=== PATIENT | female | born 1950 | race Caucasian/White ===

== ENCOUNTER 2024-02-03 13:03 | Emergency (ER) | payer OTHER ==
--- NOTE | 2024-02-03 13:38 | RAD REPORT ---
EXAMINATION: XR RIGHT SHOUDLER CLINICAL INDICATION: Female, 74 years old. Pain;Deformity RIGHT TECHNIQUE: Multiple views of the right shoulder were obtained. COMPARISON: No prior exam. FINDINGS: Fracture of the distal right clavicle with mild displacement. Fracture of the proximal righ t clavicle also present with mild angulation. There is likely a fracture of the proximal right humerus as well, not well assessed however due to arm positioning.
[2024-02-03 14:04] LABS: Absolute Basophils 0.2 K/uL (0-0.5); Absolute Lymphocytes (CBC) 0.8 K/uL (0.7-4.9); Absolute Monocytes 0.3 K/uL (0.1-1.3); Absolute Neutrophil 6.9 K/uL (1.8-8.0); Eosinophils % 0.6 % (0-4.4); Hematocrit 39.4 % (36.0-45.0); Hemoglobin 13.4 g/dL (12.0-15.0); Lymphocytes % 10.2 % (15.3-44.8); MCHC 34.1 g/dL (32.0-36.0); MCV 96.6 fL (80-100); MPV 7.9 fL (7.6-11.3); Monocytes % 3.7 % (3.3-12.3); Neutrophils % 83.5 % (41.7-73.7); Nucleated Red Blood Cells % 0.1 % (0-0); Platelets 269 thou/uL (152-406); RBC Red Blood Cell Count 4.08 M/uL (3.86-4.86); Red Cell Distribution Width 13.1 % (12.1-15.2)
[2024-02-03 14:16] LABS: Anion Gap 9.5 mEq/L (5.0-15.0); Potassium 3.5 mEq/L (3.5-5.1)
--- NOTE | 2024-02-03 14:44 | RAD REPORT ---
EXAM: CT brain without contrast HISTORY: fall down stairs COMPARISON: None TECHNIQUE: Multiple contiguous axial images were obtained and a CT of the brain without contrast. Sag ittal and coronal reformats were performed. One or more of the following dose reduction techniques were used: Automated exposure control, adjust ment of the mA and/or kV according to patient size, and/or iterative reconstruction. FINDINGS: No evidence of hydrocephalus, intracranial hemorrhage, or extra-axial fluid collection. Mild brain atrophy with mild periventricular and deep white matter chronic microvascular ischemic ch anges present. No evidence of midline shift or areas of brain edema. The calvarium is intact. The visualized paranasal sinuses and mastoid air cells are essentially clear . Left vertebral atherosclerosis. IMPRESSION: No evidence of acute intracranial abnormality. EXAM: CT of the cervical spine without contrast HISTORY: Neck pain, injury fall down stairs TECHNIQUE: Multiple contiguous axial images were obtained in a CT of the cervical spine without contr ast. Sagittal and coronal reformats were performed. FINDINGS: The vertebral bodies demonstrate normal height. 2 mm anterolisthesis C4 on 5. No evidence o f acute fracture or subluxation.. Mild lower cervical spondylosis. No prevertebral soft tissue swelling is seen. The posterior facets are well aligned. Normal alignment of the skull base with the cervical spine is seen. Moderate carotid atherosclerosis. The lung apices are unremarkable. Fracture of the proximal aspect of the right clavicle. IMPRESSION: No evidence of acute osseous abnormality of the cervical spine. Fracture of the proximal right clavicle.
--- NOTE | 2024-02-03 14:55 | RAD REPORT ---
EXAM: CT CHEST WITH CONTRAST CLINICAL INDICATION: right clavicle deformity, fall down stairs TECHNIQUE: Routine CT scan of the chest with intravenous contrast. One or more of the following dose reduction techniques were used: Automated exposure control, adjustment of the mA and/or kV according to patient size, and/or iterative reconstruction. Unless otherwise specified, incidental fi ndings do not require dedicated imaging follow-up. COMPARISON: Plain radiograph same date. FINDINGS: LUNGS: Airways are clear. No evidence of airspace or interstitial process. No nodules. PLEURA: No pleural effusion. No pneumothorax. MEDIASTINUM AND LYMPH NODES: No mediastinal mass or fluid collection. Normal size mediastinal, hilar, and axillary lymph nodes. OSSEOUS STRUCTURES AND CHEST WALL: Mildly displaced fracture proximal right clavicle. Mildly displace d fracture distal right clavicle. Comminuted fracture proximal right humerus surgical neck with impaction. UPPER ABDOMEN: No significant abnormalities. IMPRESSION: 2 part fracture of the right clavicle. Fracture the proximal right humerus with impaction.
[2024-02-03] MEDS ORDERED: HYDROCODONE/APAP 5/325 MG TAB ONE (15:59)
--- NOTE | 2024-02-03 16:02 | EDPHYS ---
Physician Documentation [facility] – [place], [place] Name: Zee Peralta Age: 74 yrs Sex: Female : 1950 Arrival Date: 02/03/2024 Time: 13:03 Bed 4 Private MD: ED Physician Zay Paul HPI: 02/02 14:28 This 74 yrs old Female presents to ER via Ambulatory with complaints of Fall Injury, ms3 Wrist Pain - Right. 14:28 Zee Peralta presents to the Emergency Department after falling down approximately ms3 eight stairs about 30 minutes ago. She landed on her right side and reports significant pain in her right shoulder. She describes a sensation of crunching in the shoulder area and is concerned about a possible fracture. She was in a dark corridor at [employer] when the fall occurred, and reports not passing out during the incident. Ms Peralta has a history of high blood pressure and diabetes.. Historical: - Allergies: 13:21 No Known Allergies; bp - Home Meds: 13:21 Unable to obtain [Active]; bp - PMHx: 13:21 Diabetes mellitus; Hypertensive disorder; bp - Immunization history:: Adult Immunizations up to date. - Infectious Disease History:: Denies. - Social history:: Smoking status: Patient denies any tobacco usage or history of. ROS: 14:28 Constitutional: Negative for fever, and chills. Cardiovascular: Negative for chest ms3 pain, and palpitations. Respiratory: Negative for shortness of breath, cough, wheezing, and pleuritic chest pain, Abdomen/GI: Negative for abdominal pain, nausea, vomiting, diarrhea, and constipation, Skin: Negative for injury, rash, and discoloration, 14:28 MS/extremity: Positive for pain, of the right clavicle, Exam: 14:28 Constitutional: This is a well developed, well nourished patient who is awake, alert, ms3 and in no acute distress. Chest/axilla: Normal chest wall appearance and motion. Nontender with no deformity. Cardiovascular: Regular rate and rhythm with a normal S1 and S2. No gallops, murmurs, or rubs. Normal PMI, no JVD. No pulse deficits. Respiratory: Lungs have equal breath sounds bilaterally, clear to auscultation and percussion. No rales, rhonchi or wheezes noted. No increased work of breathing, no retractions or nasal flaring. Abdomen/GI: Soft, non-tender, with normal bowel sounds. No distension or tympany. No guarding or rebound. No evidence of tenderness throughout. Skin: Warm, dry with normal turgor. Normal color with no rashes, no lesions, and no evidence of cellulitis. 14:28 Musculoskeletal/extremity: Extremities: noted in the right clavicle: decreased ROM, deformity, pain, swelling, tenderness, Vital Signs: 13:19 BP 196 / 90; Pulse 87; Resp 16; Temp 98; Pulse Ox 98% ; bp 13:47 BP 196 / 82; Pulse 75; Resp 16; Pulse Ox 95% ; bp 17:16 BP 167 / 91; Pulse 73; Resp 15; Pulse Ox 98% ; bp MDM: 13:40 Medical Screening Exam initiated ms3 14:28 Differential diagnosis: abrasion, closed head injury, contusion, fracture, sprain, ms3 strain. 16:19 ED course: PDMP reviewed and does not return any prescriptions. ms3 16:21 Data reviewed: vital signs, nurses notes, lab test result(s), radiologic studies, and ms3 as a result, I will discharge patient. Management of patient was discussed with the following: Ski Guide: Dr Roy- no operative fracture. Patient can follow up in clinic. I considered the following discharge prescriptions or medication management in the emergency department Medications were administered in the Emergency Department. See MAR. Independent interpretation of the following test(s) in the Emergency Department X-Ray: My interpretation is Right shoulder x-ray images reviewed by me reveal proximal and distal clavicle fractures. Historians other than the Patient: Daughter/Son: Daughter. Counseling: I had a detailed discussion with the patient and/or guardian regarding the historical points, exam findings, and any diagnostic results supporting the discharge/admit diagnosis, lab results, radiology results, the need for outpatient follow up, to return to the emergency department if symptoms worsen or persist or if there are any questions or concerns that arise at home. ED course: Discussed labs and imaging with the patient and her daughter. Patient to follow-up with Dr. Roy in 2 to 3 days. Patient and her daughter understand and agree with plan. All questions were answered. Return precautions discussed include worsening symptoms, or any other concerns. On reevaluation patient is alert, no apparent distress, nontoxic-appearing, no signs of compartment syndrome present.. 02/02 13:21 Order name: Basic Metabolic Panel; Complete Time: 14:30 ms3 02/02 13:21 Order name: CBC with Diff; Complete Time: 14:12 ms3 02/02 13:21 Order name: Type And Screen; Complete Time: 15:44 ms3 02/02 13:21 Order name: CT Head C Spine; Complete Time: 15:44 ms3 02/02 13:21 Order name: CT Chest W/ Con; Complete Time: 15:44 ms3 02/02 13:21 Order name: Shoulder Right (2 View) XRAY; Complete Time: 14:12 ms3 02/02 13:21 Order name: Labs collected and sent; Complete Time: 13:46 ms3 02/02 15:50 Order name: Sling; Complete Time: 17:15 ms3 Administered Medications: 16:05 Drug: HYDROcodone-acetaminophen PO 5 mg-325 mg 1 tabs PO once Route: PO; jb4 17:15 Follow up: Response: No adverse reaction bp 17:15 Drug: Boostrix Tdap IM 0.5 ml IM once; as a single dose Route: IM; Site: left deltoid; bp 17:15 Follow up: Response: No adverse reaction bp Disposition Summary: 02/03/24 16:02 Discharge Ordered Notes: Location: Home ms3 Condition: Stable ms3 Diagnosis - Fracture of clavicle ms3 - Fracture of upper end of humerus ms3 - Contusion of unspecified part of head ms3 - Abrasion of other part of head ms3 Followup: ms3 - With: Zach Roy MD - When: 2 - 3 days - Reason: Recheck today's complaints Discharge Instructions: - Discharge Summary Sheet ms3 - Clavicle Fracture ms3 - Humerus Fracture Treated With Immobilization, [id number] ms3 Forms: - Medication Reconciliation Form ms3 - Antibiotic Education ms3 - Prescription Opioid Use ms3 - Patient Portal Instructions ms3 - Leadership Thank You Letter ms3 Signatures: Dispatcher [employer] Noman Arteaga RN RN jb4 Herb Mckeon RN RN bp Zay Paul DO DO ms3
--- NOTE | 2024-02-03 16:02 | ER ---
Nurse's Notes [facility] Name: Zee Peralta Age: 74 yrs Sex: Female : 1950 Arrival Date: 02/03/2024 Time: 13:03 Bed 4 Private MD: Diagnosis: Fracture of clavicle;Fracture of upper end of humerus;Contusion of unspecified part of head;Abrasion of other part of head Presentation: 02/02 13:19 Chief complaint: Patient states: MECHANICAL FALL AT DRUZE AT 0800, R ARM, R SHOULDER, bp R FACE, -LOC. Coronavirus screen: At this time, the client does not indicate any symptoms associated with coronavirus-19. Ebola Screen: No symptoms or risks identified at this time. Initial Sepsis Screen: Does the patient meet any 2 criteria? No. Patient's initial sepsis screen is negative. Does the patient have a suspected source of infection? No. Patient's initial sepsis screen is negative. Risk Assessment: Do you want to hurt yourself or someone else? Patient reports no desire to harm self or others. Onset of symptoms was February 03, 2024 at 08:00. 13:19 Method Of Arrival: Ambulatory bp 13:19 Acuity: FALLON 3 bp Triage Assessment: 13:21 General: Appears uncomfortable, Behavior is calm, cooperative, appropriate for age. bp Pain: Complains of pain in right arm. EENT: No deficits noted. Neuro: No deficits noted. Cardiovascular: No deficits noted. Respiratory: No deficits noted. GI: No signs and/or symptoms were reported involving the gastrointestinal system. : No signs and/or symptoms were reported regarding the genitourinary system. Derm: No deficits noted. Musculoskeletal: Bony deformity noted of right clavicle. Historical: - Allergies: 13:21 No Known Allergies; bp - Home Meds: 13:21 Unable to obtain [Active]; bp - PMHx: 13:21 Diabetes mellitus; Hypertensive disorder; bp - Immunization history:: Adult Immunizations up to date. - Infectious Disease History:: Denies. - Social history:: Smoking status: Patient denies any tobacco usage or history of. Screenin:22 [facility] ED Fall Risk Assessment (Adult) History of falling in the last 3 months, bp including since admission Yes- single mechanical fall (1 pt) Confusion or Disorientation No (0 pts) Intoxicated or Sedated No (0 pts) Impaired Gait No (0 pts) Mobility Assist Device Used No (0 pt) Altered Elimination No (0 pt) Score/Fall Risk Level 0 - 2 = Low Risk. Abuse screen: Denies threats or abuse. Denies injuries from another. Nutritional screening: No deficits noted. Tuberculosis screening: No symptoms or risk factors identified. Assessment: 13:22 General: Appears distressed, uncomfortable, Behavior is calm, cooperative, appropriate bp for age. 13:47 Reassessment: No changes from previously documented assessment. Patient is alert, bp oriented x 3, equal unlabored respirations, skin warm/dry/pink. Vital Signs: 13:19 BP 196 / 90; Pulse 87; Resp 16; Temp 98; Pulse Ox 98% ; bp 13:47 BP 196 / 82; Pulse 75; Resp 16; Pulse Ox 95% ; bp 17:16 BP 167 / 91; Pulse 73; Resp 15; Pulse Ox 98% ; bp ED Course: 13:10 Patient arrived in ED. ra3 13:14 Herb Mckeon, JAKE is Primary Nurse. bp 13:14 Zay Paul DO is Attending Physician. ms3 13:21 Triage completed. bp 13:21 Arm band placed on. bp 13:22 Patient has correct armband on for positive identification. bp 13:34 Shoulder Right (2 View) XRAY In Process Unspecified. EDMS 13:46 Initial lab(s) drawn, by me, sent to lab. Inserted saline lock: 22 gauge in left bp forearm, using aseptic technique. Blood collected. Flushed with 10 mL NS. 14:36 CT Head C Spine In Process Unspecified. EDMS 14:36 CT Chest W/ Con In Process Unspecified. EDMS 16:01 Zach Jefferson MD is Referral Physician. ms3 Administered Medications: 16:05 Drug: HYDROcodone-acetaminophen PO 5 mg-325 mg 1 tabs PO once Route: PO; jb4 17:15 Follow up: Response: No adverse reaction bp 17:15 Drug: Boostrix Tdap IM 0.5 ml IM once; as a single dose Route: IM; Site: left deltoid; bp 17:15 Follow up: Response: No adverse reaction bp Medication: 13:22 VIS not applicable for this client. bp Outcome: 16:02 Discharge ordered by MD. ms3 17:16 Patient left the ED. bp Signatures: Dispatcher [employer] EDNoman Kwon RN RN jb4 Herb Mckeon RN RN Zay Lubin DO DO ms3 Delisa Rincon ra3
[2024-02-03] MEDS ORDERED: TDAP (DIPHTH,PERTUSS(ACELL),TET VAC) 0.5 ML VIAL IMVAC ONE (17:04)
[2024-02-03 17:38] VITALS: TEMP 98; O2SAT 98
[2024-02-03 17:40] VITALS: BP 167/91
== END 2024-02-03 17:16 | disposition home or self-care (01) ==
LOC: ER 13:03
DX: S42.031A Displaced fracture of lateral end of right clavicle, initial encounter for closed fracture (principal); S42.201A Unspecified fracture of upper end of right humerus, initial encounter for closed fracture; S00.81XA Abrasion of other part of head, initial encounter; S00.83XA Contusion of other part of head, initial encounter; W10.8XXA Fall (on) (from) other stairs and steps, initial encounter
CPT/HCPCS: 85025; 80048; 36415; 86900; 86850; 86901; 70450; 72125; 71260; 73030; 96372; 99284; Q9967

== ENCOUNTER 2024-06-14 05:47 | Inpatient (IN) | payer OTHER ==
[2024-06-14] MEDS ORDERED: ACETAMINOPHEN 500 MG TAB ONE (06:09)
--- NOTE | 2024-06-14 07:11 | RAD REPORT ---
EXAMINATION: CT MAXILLOFACIAL WITHOUT CONTRAST CLINICAL INDICATION: [facility] MA[facility] facial injury Bed Name: 4 TECHNIQUE: Axial images were obtained through the facial bones and orbits without intravenous contras t. Sagittal and coronal reconstructions were created from the data. One or more of the following dose reduction techniques were used: Automated exposure control, adjustment of the mA and/or kV accor ding to patient size, and/or iterative reconstruction. Unless otherwise specified, incidental findings do not require dedicated imaging follow-up. COMPARISON: No prior exam. FINDINGS: SOFT TISSUE: No significant abnormalities. BONES: Mild irregularity along the left nasal bone, without significant surrounding soft tissue edema , may reflect a subacute or chronic fracture. No other evidence of acute fracture, dislocation, or aggressive osseous lesions. No lesion of the visualized skull base or calvarium. Moderate degenerative changes of the temporomandibular joints, worse on the left. ORBITS: The globes are intact. No intraorbital hemorrhage or mass. SINUSES: The paranasal sinuses and tympanomastoid cavities are predominantly clear. IMPRESSION: No evidence of acute facial bone fracture. Possible subacute or chronic left nasal bone fracture..
--- NOTE | 2024-06-14 07:15 | RAD REPORT ---
EXAM: CT brain without contrast HISTORY: facial injury COMPARISON: 02/03/2024 TECHNIQUE: Multiple contiguous axial images were obtained and a CT of the brain without contrast. Sag ittal and coronal reformats were performed. FINDINGS: No evidence of hydrocephalus, intracranial hemorrhage, or extra-axial fluid collection. The brain is normal in morphology. The calvarium is intact. The visualized paranasal sinuses and mastoid air cells are essentially clear . IMPRESSION: No evidence of acute intracranial abnormality. EXAM: CT of the cervical spine without contrast HISTORY: facial injury COMPARISON: None TECHNIQUE: Multiple contiguous axial images were obtained in a CT of the cervical spine without contr ast. Sagittal and coronal reformats were performed. FINDINGS: The vertebral bodies demonstrate normal height and alignment. Up to moderate facet and unco vertebral joint degenerative changes, contributing to moderate right neural foraminal narrowing at C4-5 and lesser degrees of foraminal narrowing elsewhere. No degenerative changes are present. No pr evertebral soft tissue swelling is seen. The posterior facets are well aligned. Normal alignment of the skull base with the cervical spine is seen. The lung apices are unremarkable. IMPRESSION: No evidence of acute osseous abnormality of the cervical spine. Degenerative changes as above.
--- NOTE | 2024-06-14 07:21 | RAD REPORT ---
EXAM: CT CHEST, ABDOMEN AND PELVIS WITHOUT CONTRAST CLINICAL INDICATION: Female, 74 years old. [facility] MAIN fall neck pain and chest pain Bed Name: 4 TECHNIQUE: CT chest, abdomen and pelvis was performed, without IV contrast, as per department protoco l. Axial, sagittal and coronal reconstructions were obtained. One or more of the following dose reduction techniques were used: Automated exposure control, adjustment of the mA and/or kV according to the patient size, and/or iterative reconstruction. Unless otherwise specified, incidental findings do not require dedicated imaging follow-up. COMPARISON: 02/03/2024 FINDINGS: The lack of intravenous contrast limits the sensitivity of this exam for evaluation of solid visceral organs, vascular structures, and retroperitoneum. Chest: LOWER NECK/CHEST WALL: Visualized thyroid gland and soft tissues are normal. LUNGS AND AIRWAYS: Airways are clear. No evidence of airspace or interstitial process. No nodules. PLEURA: No pleural effusion. No pneumothorax. Hemidiaphragms are normally positioned. MEDIASTINUM AND LYMPH NODES: No mediastinal mass or fluid collection. Normal size mediastinal, hilar, and axillary lymph nodes. THORACIC AORTA: Normal caliber and configuration. PULMONARY ARTERIES: Normal caliber. HEART: Unremarkable. Abdomen/Pelvis LIVER: Normal in size and contour. No focal lesion. GALLBLADDER/BILE DUCTS: No biliary ductal dilatation. PANCREAS: No mass, ductal dilation, or karissa-pancreatic fluid. SPLEEN: Normal size. No focal lesion. ADRENALS: Normal; no mass. KIDNEYS AND URETERS: Normal size and contour. No hydronephrosis. GASTROINTESTINAL TRACT: Stomach is non-dilated. Small bowel has normal course and caliber. No colonic wall thickening or pericolonic inflammatory changes. PERITONEUM: No free fluid. LYMPH NODES: No lymphadenopathy. ABDOMINAL AORTA AND OTHER VESSELS: Normal caliber aorta and IVC. Dense atherosclerotic calcifications of the descending and abdominal aorta. URINARY BLADDER: Normal contour. REPRODUCTIVE ORGANS: No pathologic process. MUSCULOSKELETAL: Healing fractures along the left third through sixth ribs, right third rib, right se venth-10th 2 chondral junctions. The anterior moderate wedge compression deformity at L1, new since the prior exams, and is ultimately indeterminate age. No acute or suspicious osseous abnormality. ADDITIONAL FINDINGS: None IMPRESSION: Superior endplate compression deformity at L1, of indeterminate age. Healing bilateral rib fractures as above. No other acute or significant abnormalities in the chest, abdomen, or pelvis.
[2024-06-14 08:20] LABS: Absolute Lymphocytes (CBC) 0.9 K/uL (0.7-4.9); Absolute Monocytes 0.4 K/uL (0.1-1.3); Absolute Neutrophil 5.6 K/uL (1.8-8.0); Basophils % 0.3 % (0-1.3); Eosinophils % 0.1 % (0-4.4); Hematocrit 12.4 % (36.0-45.0); Lymphocytes % 13.1 % (15.3-44.8); MCHC 33.6 g/dL (32.0-36.0); MCV 95.2 fL (80-100); MPV 7.6 fL (7.6-11.3); Monocytes % 5.3 % (3.3-12.3); Neutrophils % 81.2 % (41.7-73.7); Platelets 314 thou/uL (152-406)
[2024-06-14 08:28] LABS: Hemoglobin 4.1 g/dL (12.0-15.0)
[2024-06-14 08:33] LABS: PT Prothrombin Time 19.4 SECONDS (10-13.0); Protime INR 1.75
[2024-06-14 08:49] LABS: ALT/SGPT 18 U/L (13-56); AST/SGOT 16 U/L (15-37); Albumin 2.9 g/dL (3.4-5.0); Albumin/Globulin Ratio 1.2 (1.1-1.8); Alkaline Phosphatase 30 U/L (45-117); Anion Gap 12.1 mEq/L (5.0-15.0); BUN Blood Urea Nitrogen 40 mg/dL (7-18); Bicarbonate 17 mEq/L (21-32); Bilirubin Total 0.3 mg/dL (0.2-1.0); Globulin 2.5 g/dL (2.3-3.5); Glomerular Filtration Rate 51 ml/min (=/>90); Glucose Level 198 mg/dL (74-106); Lipase 26 U/L (13-75); NT PRO-BNP 472 pg/mL (<125); Potassium 4.1 mEq/L (3.5-5.1); Protein, Total 5.4 g/dL (6.4-8.2); Sodium Level 138 mEq/L (136-145); Troponin High Sensitivity 19.1 pg/mL (<58.9)
[2024-06-14 08:51] LABS: Bilirubin Direct < 0.2 mg/dL (0-0.2); Bilirubin Indirect, Calculated 0.1 mg/dL (0.2-0.8)
[2024-06-14] MEDS ORDERED: ALBUMIN HUMAN 25% 100 ML IV ONE (09:14)
[2024-06-14] MEDS ORDERED: PANTOPRAZOLE 40 MG INJ ONE (09:14)
--- NOTE | 2024-06-14 09:34 | ER ---
Nurse's Notes [facility] Name: Zee Peralta Age: 74 yrs Sex: Female : 1950 Arrival Date: 06/14/2024 Time: 05:33 Bed 4 Private MD: Diagnosis: Anemia, unspecified;Muscle weakness (generalized);GI Bleed/ Gastrointestinal hemorrhage, unspecified Presentation: 06/14 05:56 Chief complaint: EMS states: TONED OUT FOR SHOULDER PAIN, FALL AND WEAKNESS. PT REPORTS dd2 THAT SHE HAS BEEN FEELING DIZZY AND WEAK FOR APPROX 1 WEEK, FELL RECENTLY AND HAS A FX RT SHOULDER. PT REPORTS SHE WAS GETTING UP THIS MORNING TO GO TO THE BATHROOM AND THE WALKER SLIDE OUT AND SHE FELL FORWARD HITTING HER FACE AND LT SHOULDER CAUSING PAIN TO LT SHOULDER AND NECK. Coronavirus screen: At this time, the client does not indicate any symptoms associated with coronavirus-19. Ebola Screen: No symptoms or risks identified at this time. Initial Sepsis Screen: Does the patient meet any 2 criteria? No. Patient's initial sepsis screen is negative. Does the patient have a suspected source of infection? No. Patient's initial sepsis screen is negative. Risk Assessment: Do you want to hurt yourself or someone else? Patient reports no desire to harm self or others. Onset of symptoms is unknown. 05:56 Method Of Arrival: EMS: [facility] dd2 05:56 Acuity: [place] 3 dd2 05:56 Care prior to arrival: Cervical collar in place. Glucose check: 341. dd2 Triage Assessment: 06:03 General: Appears in no apparent distress. uncomfortable, Behavior is calm, cooperative, dd2 appropriate for age. Pain: Complains of pain in face, anterior aspect of left shoulder and neck Pain currently is 7 out of 10 on a pain scale. EENT: No signs and/or symptoms were reported regarding the EENT system. Reports TUBES PLACED IN EARS RECENTLY . Neuro: Mcrae Agitation-Sedation Scale (RASS): 0 - Alert and Calm Level of Consciousness is awake, alert, obeys commands, Oriented to person, place, time, situation, Appropriate for age [employer] are equal bilaterally Moves all extremities. Speech is normal, Facial symmetry appears normal, Pupils are PERRLA, Reports weakness GENERALIZED. Cardiovascular: Denies chest pain, Heart tones S1 S2 present JVD is absent Patient's skin is warm and dry. Respiratory: Airway is patent Respiratory effort is even, unlabored, Respiratory pattern is regular, symmetrical, Breath sounds are clear bilaterally. GI: No deficits noted. No signs and/or symptoms were reported involving the gastrointestinal system. Abdomen is flat, non-distended, Bowel sounds present X 4 quads. Abd is soft and non tender X 4 quads. : No deficits noted. No signs and/or symptoms were reported regarding the genitourinary system. Derm: Wound noted lower lip Wound is SMALL ABRASION. Musculoskeletal: Circulation, motion, and sensation intact. Range of motion: intact in all extremities, Reports pain in face, anterior aspect of left shoulder and neck. Injury Description: Abrasion sustained to lower lip. Historical: - Allergies: 06:03 No Known Allergies; dd2 - PMHx: 06:03 diabetes mellitus; Hypertensive disorder; dd2 - PSHx: 06:03 None; dd2 - Immunization history:: Adult Immunizations up to date. - Infectious Disease History:: Denies. - Social history:: Smoking status: Patient denies any tobacco usage or history of. - Family history:: not pertinent. Screenin:09 [facility] ED Fall Risk Assessment (Adult) History of falling in the last 3 months, dd2 including since admission Yes- fall prone (multiple falls) (3 pts) Confusion or Disorientation No (0 pts) Intoxicated or Sedated No (0 pts) Impaired Gait Yes (1 pt) Mobility Assist Device Used Yes (1 pt) Altered Elimination No (0 pt) Score/Fall Risk Level 3 or more points = High Risk Oriented to surroundings, Maintained a safe environment, Educated pt \T\ family on fall prevention, incl call for assistance when getting out of bed, Assessed \T\ reinforced patient's understanding of fall precautions, Hourly rounding (assess needs \T\ fall precautionary measures) done, Used ambulatory aids as needed (educated on \T\ assisted with), Offered frequent toileting (1:1 observation), Remained with patient while ambulating. Abuse screen: Denies threats or abuse. Denies injuries from another. Nutritional screening: No deficits noted. Tuberculosis screening: No symptoms or risk factors identified. Assessment: 06:09 Reassessment: SEE TRIAGE ASSESSMENT FOR FULL ASSESSMENT. dd2 10:00 Reassessment: PT CONSENTED FOR PRBC. bp 11:00 Reassessment: PER PROVIDER, PT NPO AFTER MIDNIGHT FOR EGD TOMORROW. 1ST UNIT PRBC bp TRANSFUSING. 12:20 Reassessment: ADMIT ON HOLD FOR ICU. bp 12:58 Reassessment: REPORT TO ICU. bp Vital Signs: 05:56 BP 123 / 59; Pulse 87; Resp 16; Temp 98.3; Pulse Ox 100% on R/A; Pain 7/10; dd2 05:57 BP 118 / 44; Pulse 86; Resp 18; Temp 97.9(O); Pulse Ox 100% on R/A; Weight 58.97 kg; oe Height 5 ft. 4 in. ; 08:00 BP 117 / 48; Pulse 80; Resp 18; Pulse Ox 100% ; bp 10:00 BP 121 / 51; Pulse 79; Resp 17; Pulse Ox 100% ; bp 11:00 BP 114 / 48; Pulse 80; Resp 16; Pulse Ox 100% ; bp 12:00 BP 138 / 53; Pulse 77; Resp 18; Pulse Ox 100% ; bp 05:57 Body Mass Index 22.31 (58.97 kg, 162.56 cm) oe 05:56 Pain Scale: Adult dd2 Rossi Coma Score: 06:09 Eye Response: spontaneous(4). Motor Response: obeys commands(6). Verbal Response: dd2 oriented(5). Total: 15. 07:09 Eye Response: spontaneous(4). Motor Response: obeys commands(6). Verbal Response: sp4 oriented(5). Total: 15. ED Course: 05:53 Patient arrived in ED. dd2 05:57 Asaf Hancock MD is Attending Physician. sp4 06:02 Triage completed. dd2 06:03 Arm band placed on left wrist. dd2 06:08 Jami Taveras RN is Primary Nurse. kd3 06:09 Patient has correct armband on for positive identification. Bed in low position. Call dd2 light in reach. Side rails up X2. Client placed on continuous cardiac and pulse oximetry monitoring. NIBP monitoring applied. Door closed. Noise minimized. Warm blanket given. Pillow given. Verbal reassurance given. 06:09 No provider procedures requiring assistance completed. Inserted saline lock: 22 gauge dd2 in right hand, using aseptic technique. Blood collected. Flushed with 10 mL NS. Patient maintains SpO2 saturation greater than 95% on room air. 06:43 CT Head C Spine In Process Unspecified. EDMS 06:43 CT Chest Abdomen Pelvis W/O Contrast In Process Unspecified. EDMS 06:43 CT Facial Bones W/O Con In Process Unspecified. EDMS 07:25 Attending Physician role handed off by Asaf Hancock MD ms3 07:25 Zay Paul DO is Attending Physician. ms3 07:25 Asaf Hancock MD is Attending Physician. ms3 08:06 Attending Physician role handed off by Asaf Hancock MD ms3 08:06 Zay Paul DO is Attending Physician. ms3 08:27 Notified ED physician of a critical lab result(s). 4.1 HGB. iw 09:32 Tomi Ribeiro MD is Hospitalizing Provider. ms3 11:00 Provided Education on: Blood Transfusion. bp 12:20 Patient admitted, IV remains in place. bp Administered Medications: 06:11 Drug: Acetaminophen PO 1000 mg PO once Route: PO; kd3 07:54 Follow up: Response: No adverse reaction bp 09:25 Drug: Pantoprazole IVP 40 mg IVP once Route: IVP; Site: right wrist; bp 12:21 Follow up: Response: No adverse reaction bp 09:26 Drug: Albumin IVPB 25 grams 100 ml IVPB once; (Note: Albumin 25% concentration) Volume: bp 100 ml; Route: IVPB; Site: right wrist; 12:21 Follow up: IV Status: Completed infusion bp 10:49 Drug: Pantoprazole IV 8 mg/hr IV at 25 ml/hr continuous; (Standard dilution is 80 mg in bp 250 mL NS) Route: IV; Rate: 25 ml/hr; Site: right wrist; Medication: 06:09 VIS not applicable for this client. dd2 Outcome: 09:33 Decision to Hospitalize by Provider. ms3 12:20 Admitted to ICU accompanied by nurse, via stretcher, room 7, bp 12:20 Condition: stable 12:20 Instructed on the need for admit, 13:53 Patient left the ED. bp Signatures: Dispatcher [employer] EDMS Beverly Shanks RN RN iw Teddy Nolan Brian, RN RN bp Zay Paul DO DO ms3 Jami Taveras, RN RN kd3 Asaf Hancock MD MD sp4 SHAKIRA CONNELLY, RN RN dd2
--- NOTE | 2024-06-14 09:34 | EDPHYS ---
Physician Documentation [facility] Name: Zee Peralta Age: 74 yrs Sex: Female : 1950 Arrival Date: 06/14/2024 Time: 05:33 Bed 4 Private MD: ED Physician Zay Paul HPI: 06/14 05:57 This 74 yrs old Female presents to ER via Unassigned with complaints of sp4 Shoulder Pain, Fall Injury, Neck Pain, <24hrs Old. 07:08 Patient is a very pleasant 74-year-old female presents with acute fall at home onto the sp4 left side over the face. Patient presents with complaint of left shoulder pain neck pain and facial pain on the left side. History of diabetes also history of bilateral DVTs, takes Xarelto daily. Historical: - Allergies: 06:03 No Known Allergies; dd2 - PMHx: 06:03 diabetes mellitus; Hypertensive disorder; dd2 - PSHx: 06:03 None; dd2 - Immunization history:: Adult Immunizations up to date. - Infectious Disease History:: Denies. - Social history:: Smoking status: Patient denies any tobacco usage or history of. - Family history:: not pertinent. ROS: 07:09 Constitutional: Negative for fever, chills, and weight loss, positive facial pain, sp4 positive neck pain, positive left shoulder pain 07:09 All other systems are negative, Exam: 07:09 Constitutional: This is a well developed, well nourished patient who is awake, alert, sp4 and in no acute distress. Head/Face: Normocephalic, atraumatic. Eyes: Pupils equal round and reactive to light, extra-ocular motions intact. Lids and lashes normal. Conjunctiva and sclera are not injected. Cornea within normal limits. Periorbital areas with no swelling, redness, or edema. ENT: Nares patent. No nasal discharge, no septal abnormalities noted. Tympanic membranes are normal and external auditory canals are clear. Oropharynx with no redness, swelling, or masses, exudates, or evidence of obstruction, uvula midline. Mucous membranes moist. Neck: Trachea midline, no thyromegaly or masses palpated, and no cervical lymphadenopathy. Supple, full range of motion without nuchal rigidity, or vertebral point tenderness. Chest/axilla: Normal chest wall appearance and motion. Nontender with no deformity. No lesions are appreciated. Cardiovascular: Regular rate and rhythm with a normal S1 and S2. No gallops, murmurs, or rubs. Normal PMI, no JVD. No pulse deficits. Respiratory: Lungs have equal breath sounds bilaterally, clear to auscultation and percussion. No rales, rhonchi or wheezes noted. No increased work of breathing, no retractions or nasal flaring. Abdomen/GI: Soft, with normal bowel sounds. No distension or tympany. No guarding or rebound. No evidence of tenderness throughout. Back: No spinal tenderness. No costovertebral tenderness. Skin: Warm, dry with normal turgor. Normal color with no rashes, no lesions, and no evidence of cellulitis. MS/ Extremity: Pulses equal, no cyanosis. Neurovascular intact. Full, normal range of motion. Neuro: Awake and alert, GCS 15, oriented to person, place, time, and situation. Cranial nerves II-XII grossly intact. Motor strength 5/5 in all extremities. Sensory grossly intact. Psych: Awake, alert, with orientation to person, place and time. Behavior, mood, and affect are within normal limits 09:53 ECG was reviewed by the Attending Physician. ms3 Vital Signs: 05:56 BP 123 / 59; Pulse 87; Resp 16; Temp 98.3; Pulse Ox 100% on R/A; Pain 7/10; dd2 05:57 BP 118 / 44; Pulse 86; Resp 18; Temp 97.9(O); Pulse Ox 100% on R/A; Weight 58.97 kg; oe Height 5 ft. 4 in. ; 08:00 BP 117 / 48; Pulse 80; Resp 18; Pulse Ox 100% ; bp 10:00 BP 121 / 51; Pulse 79; Resp 17; Pulse Ox 100% ; bp 11:00 BP 114 / 48; Pulse 80; Resp 16; Pulse Ox 100% ; bp 12:00 BP 138 / 53; Pulse 77; Resp 18; Pulse Ox 100% ; bp 05:57 Body Mass Index 22.31 (58.97 kg, 162.56 cm) oe 05:56 Pain Scale: Adult dd2 Rossi Coma Score: 06:09 Eye Response: spontaneous(4). Motor Response: obeys commands(6). Verbal Response: dd2 oriented(5). Total: 15. 07:09 Eye Response: spontaneous(4). Motor Response: obeys commands(6). Verbal Response: sp4 oriented(5). Total: 15. MDM: 06:04 Medical Screening Exam initiated sp4 07:12 Differential diagnosis: humeral head fracture, glenoid fracture, DJD, tendonitis. Data sp4 reviewed: vital signs, nurses notes, EMS record, old medical records, radiologic studies, CT scan. Consideration of Admission/Observation Escalation of care including admission/observation considered. Transition of care: After a detail discussion of the patient's case, care is transferred to Zay Beverly JONES. 07:27 ED course: IMPRESSION: No evidence of acute intracranial abnormality. EXAM: CT of the sp4 cervical spine without contrast HISTORY: facial injury COMPARISON: None TECHNIQUE: Multiple contiguous axial images were obtained in a CT of the cervical spine without contrast. Sagittal and coronal reformats were performed. FINDINGS: The vertebral bodies demonstrate normal height and alignment. Up to moderate facet and uncovertebral joint degenerative changes, contributing to moderate right neural foraminal narrowing at C4-5 and lesser degrees of foraminal narrowing elsewhere. No degenerative changes are present. No prevertebral soft tissue swelling is seen. The posterior facets are well aligned. Normal alignment of the skull base with the cervical spine is seen. The lung apices are unremarkable. IMPRESSION: No evidence of acute osseous abnormality of the cervical spine. Degenerative changes as above. . ED course: IMPRESSION: Superior endplate compression deformity at L1, of indeterminate age. Healing bilateral rib fractures as above. No other acute or significant abnormalities in the chest, abdomen, or pelvis. . ED course: IMPRESSION: Superior endplate compression deformity at L1, of indeterminate age. Healing bilateral rib fractures as above. No other acute or significant abnormalities in the chest, abdomen, or pelvis. . ED course: EXAMINATION: CT MAXILLOFACIAL WITHOUT CONTRAST CLINICAL INDICATION: [facility] MAIN facial injury Bed Name: 4 TECHNIQUE: Axial images were obtained through the facial bones and orbits without intravenous contrast. Sagittal and coronal reconstructions were created from the data. One or more of the following dose reduction techniques were used: Automated exposure control, adjustment of the mA and/or kV according to patient size, and/or iterative reconstruction. Unless otherwise specified, incidental findings do not require dedicated imaging follow-up. COMPARISON: No prior exam. FINDINGS: SOFT TISSUE: No significant abnormalities. BONES: Mild irregularity along the left nasal bone, without significant surrounding soft tissue edema, may reflect a subacute or chronic fracture. No other evidence of acute fracture, dislocation, or aggressive osseous lesions. No lesion of the visualized skull base or calvarium. Moderate degenerative changes of the temporomandibular joints, worse on the left. ORBITS: The globes are intact. No intraorbital hemorrhage or mass. SINUSES: The paranasal sinuses and tympanomastoid cavities are predominantly clear. IMPRESSION: No evidence of acute facial bone fracture. Possible subacute or chronic left nasal bone fracture. . 07:43 ED course: On repeat evaluation patient got up to walk became very pale, developed sp4 midsternal chest pain and reported severe weakness. At this time we will pursue full workup to ascertain the source of generalized weakness. . 07:44 ED course: Patient was turned over to Dr. Paul . . sp4 08:06 Transition of care: Care assumed from Asaf Hancock MD. ms3 09:33 Management of patient was discussed with the following: Hospitalist: Dr Ribeiro. I ms3 considered the following discharge prescriptions or medication management in the emergency department Medications were administered in the Emergency Department. See MAR. Counseling: I had a detailed discussion with the patient and/or guardian regarding the historical points, exam findings, and any diagnostic results supporting the discharge/admit diagnosis, lab results, radiology results, the need for further work-up and treatment in the hospital. ED course: Discussed with patient and her family necessity for blood transfusion and admission. They understand and agree with plan. Case was discussed with the hospitalist and they accept admission.. 06/14 07:41 Order name: Basic Metabolic Panel; Complete Time: 09:27 sp4 06/14 07:41 Order name: CBC with Diff; Complete Time: 08:46 sp4 06/14 07:41 Order name: LFT's; Complete Time: 09:27 sp4 06/14 07:41 Order name: Magnesium; Complete Time: 09: sp4 06/14 07:41 Order name: NT PRO-BNP; Complete Time: 09: sp4 06/14 07:41 Order name: PT-INR; Complete Time: 08:46 sp4 06/14 07:41 Order name: Troponin HS; Complete Time: 09:27 sp4 06/14 07:41 Order name: Type And Screen sp4 06/14 07:42 Order name: Urinalysis W/Microscopic; Complete Time: 11:12 sp4 06/14 07:42 Order name: TSH; Complete Time: 09:27 sp4 06/14 07:42 Order name: Lipase; Complete Time: 09:27 sp4 06/14 10:07 Order name: CBC with Automated Diff EDMS 06/14 10:07 Order name: CBC with Automated Diff EDMS 06/14 10:07 Order name: CBC with Automated Diff EDMS 06/14 10:07 Order name: CBC with Automated Diff EDMS 06/14 10:07 Order name: CBC with Automated Diff EDMS 06/14 10:07 Order name: Comprehensive Metabolic Panel EDMS 06/14 10:07 Order name: Comprehensive Metabolic Panel EDMS 06/14 10:07 Order name: Comprehensive Metabolic Panel EDMS 06/14 10:07 Order name: Comprehensive Metabolic Panel EDMS 06/14 10:07 Order name: Comprehensive Metabolic Panel EDMS 06/14 10:13 Order name: Packed RBC Leukored EDMS 06/14 05:57 Order name: CT Head C Spine; Complete Time: 08:46 sp4 06/14 05:58 Order name: CT Chest Abdomen Pelvis W/O Contrast; Complete Time: 08:46 sp4 06/14 06:03 Order name: CT Facial Bones W/O Con; Complete Time: 08:46 sp4 06/14 07:41 Order name: EKG; Complete Time: 07:42 sp4 06/14 10:04 Order name: CONS Physician Consult EDMS 06/14 07:41 Order name: Cardiac monitoring; Complete Time: 07:59 sp4 06/14 07:41 Order name: EKG - Nurse/Tech; Complete Time: 07:59 sp4 06/14 07:41 Order name: IV Saline Lock; Complete Time: 07:59 sp4 06/14 07:41 Order name: Labs collected and sent; Complete Time: 07:59 sp4 06/14 07:41 Order name: O2 Per Protocol; Complete Time: 07:59 sp4 06/14 07:41 Order name: O2 Sat Monitoring; Complete Time: 07:59 sp4 06/14 09:48 Order name: NPO; Complete Time: 10:05 la1 EC:53 Rate is 81 beats/min. Rhythm is regular. QRS [place] is Normal. [place] interval is normal. QRS ms3 interval is normal. Clinical impression: NSR w/ Non-specific ST/T Changes. Interpreted by me. Reviewed by me. Administered Medications: 06:11 Drug: Acetaminophen PO 1000 mg PO once Route: PO; kd3 07:54 Follow up: Response: No adverse reaction bp 09:25 Drug: Pantoprazole IVP 40 mg IVP once Route: IVP; Site: right wrist; bp 12:21 Follow up: Response: No adverse reaction bp 09:26 Drug: Albumin IVPB 25 grams 100 ml IVPB once; (Note: Albumin 25% concentration) Volume: bp 100 ml; Route: IVPB; Site: right wrist; 12:21 Follow up: IV Status: Completed infusion bp 10:49 Drug: Pantoprazole IV 8 mg/hr IV at 25 ml/hr continuous; (Standard dilution is 80 mg in bp 250 mL NS) Route: IV; Rate: 25 ml/hr; Site: right wrist; Disposition Summary: 06/14/24 09:33 Hospitalization Ordered Notes: Hospitalization Status: Inpatient Admission ms3 Provider: Tomi Ribeiro ms3 Condition: Stable ms3 Problem: new ms3 Symptoms: are unchanged ms3 Bed/Room Type: Standard ms3 Location: Intensive Care Unit(06/14/24 12:12) [facility] Room Assignment: -(06/14/24 12:12) [facility] Diagnosis - Anemia, unspecified ms3 - Muscle weakness (generalized) ms3 - GI Bleed/ Gastrointestinal hemorrhage, unspecified ms3 Forms: - Medication Reconciliation Form ms3 - SBAR form ms3 - Leadership Thank You Letter ms3 Critical care time excluding procedures: 09:33 Critical care time: Bedside Care: 45 minutes, Consultation: 5 minutes, Family ms3 Intervention: 5 minutes. Total time: 55 minutes Signatures: Dispatcher [employer] John Rayo, [employer] Herb Mckeon, RN RN bp Zay Paul DO DO ms3 Jami Taveras RN RN kd3 Belkys James RN RN kb3 Lou Wolf bc6 Asaf Hancock MD MD sp4 SHAKIRA CONNELLY RN RN dd2 Corrections: (The following items were deleted from the chart) 05:58 05:58 Head C Spine MPR Wo Con+CT.RAD.BRZ ordered. EDMS EDMS 09:36 09:33 Telemetry/MedSurg (Inpatient) ms3 ms3 09:36 09:33 ms3 ms3 11:23 09:36 Intensive Care Unit ms3 kb3 11:23 09:36 ms3 kb3 12:12 11:23 [facility] ER HOLD kb3 bc6 12:12 11:23 ERHOLD- kb3 bc6
[2024-06-14 09:52] LABS: Specific Gravity 1.019 (1.005-1.030); Sqamous Epithelial <5 /HPF (None Seen); Transitional Epithelial <5 /HPF (None Seen); Urine Bacteria None Seen /HPF (<20); Urine Bilirubin NEGATIVE (Negative); Urine Blood Negative (Negative); Urine Clarity Clear (Clear); Urine Color Light-Yellow (Yellow); Urine Glucose NEGATIVE (Negative); Urine Ketones TRACE (Negative); Urine Micro Reflex YN NO BILL MICROSCOPIC; Urine Mucus Slight /HPF (None Seen); Urine Nitrite NEGATIVE (Negative); Urine Protein NEGATIVE (Negative); Urine RBC <5 /HPF (None Seen); Urine Urobilinogen Normal (Normal); Urine WBC <5 /HPF (<5)
[2024-06-14] MEDS ORDERED: MORPHINE 2 MG/ML SYR IV PRN (10:03)
[2024-06-14] MEDS ORDERED: ONDANSETRON 4 MG/2 ML VIAL IV PRN (10:03)
[2024-06-14] MEDS ORDERED: NA CHLORIDE 0.9% 250 ML ONE (10:21)
[2024-06-14 14:02] VITALS: BMI 22.3
[2024-06-14] MEDS: PANTOPRAZOLE INJ 80 MG in NA CHLORIDE 0.9% 250 ML IV SCH (14:09)
[2024-06-14] MEDS: NA CHLORIDE 0.9% 250 ML ONE (14:37)
[2024-06-14] MEDS: FLU (Fluarix Triv) TS24-25(6MOS UP)/PF 45 MCG/0.5 ML Syringe IM ONE (15:15)
--- NOTE | 2024-06-14 16:00 | P.HP ---
Certification for Inpatient Patient admitted to: Inpatient With expected LOS: >2 Midnights Patient will require the following post-hospital care: None Practitioner: I am a practitioner with admitting privileges, knowledge of patient current condition, hospital course, and medical plan of care. Services: Services provided to patient in accordance with Admission requirements found in Title 42 Section 412.3 of the Code of Federal Regulations Patient History Date of Service: 06/14/24 Reason for admission: Upper GI bleed History of Present Illness: 74-year-old female with history of jkq-kofrlui-lamucpnty diabetes, DVT on Xarelto presents to the emergency department with chief complaint of fall. She was evaluated in the emergency department her CT head/C-spine showed no acute findings, CT of the chest abdomen pelvis subsequently was performed which showed superior endplate compression deformity at L1 of indeterminate age, healing bilateral rib fractures as above with no other acute findings. Facial bones CT was also performed which showed possible subacute or chronic left nasal bone fracture. Patient labs demonstrated severe anemia with a hemoglobin of 4.1 bicarb of 17 BUN of 40 with a creatinine of 1.13. Patient does report that she is been having round black stools for around a month or more now. She was started on Xarelto around 2 months ago for DVT. Patient was discussed with GI who will be seeing patient during hospitalization for EGD, blood transfusion of 2 unit PRBC ordered in ED, patient to be admitted to ICU for further management. Allergies No Known Allergies Allergy (Unverified 06/14/24 10:26) Home Medications: Alendronate Sodium 70 mg PO DAILY 06/14/24 Atorvastatin Calcium 20 mg PO DAILY 06/14/24 Metformin ER [Glucophage ER*] 500 mg PO DAILY 06/14/24 - Past Medical/Surgical History Has patient received pneumonia vaccine in the past: No Diabetic: Yes -: orthostatic HTN -: DVT -: Diabetes mellitus type [id number]-bydulqkqg Psychosocial/ Personal History: Lives at home with family - Social History Smoking Status: Never smoker Alcohol use: No CD- Drugs: No Caffeine use: No Place of Residence: Home Review of Systems 10-point ROS is otherwise unremarkable Respiratory: Shortness of Breath, SOB with Excertion Gastrointestinal: Melena Physical Examination - Vital Signs Temperature: 97.9 F Blood Pressure: 135/54 Pulse: 74 Respirations: 20 Pulse Ox (%): 100 - Physical Exam General: Alert, In no apparent distress, Oriented x3 HEENT: Atraumatic Neck: Supple Respiratory: Clear to auscultation bilaterally, Normal air movement Cardiovascular: Regular rate/rhythm, Normal S1 S2 Gastrointestinal: Normal bowel sounds, No tenderness Musculoskeletal: No tenderness Integumentary: No rashes Neurological: Normal speech, Normal strength at 5/5 x4 extr, Normal affect - Studies Laboratory Data (last 24 hrs) 06/14/24 06/14/24 06/14/24 08:04 08:04 08:04 WBC 6.90 Hgb 4.1 L* Hct 12.4 L Plt Count 314 PT 19.4 H INR 1.75 Sodium 138 Potassium 4.1 BUN 40 H Creatinine 1.13 H Glucose 198 H Magnesium 2.0 Total Bilirubin 0.3 AST 16 ALT 18 Alkaline Phosphatase 30 L Lipase 26 Assessment and Plan - Plan Assessment: Severe acute blood loss anemia Suspected upper GI bleed History of DVT on Xarelto Diabetes type 1rnl-ybpylbo-kxztqjoyr Plan: Severe acute blood loss anemia Suspected upper GI bleed History of DVT on Xarelto Hold Xarelto, last dose 06/13 around 2 PM Clear liquids for now, n.p.o. after midnight Giving 2 units of packed red blood cells now, recheck hemoglobin 2 hours after this GI consulted/has seen patient Plan for EGD tomorrow morning Diabetes type 3cfw-ruoackz-yakegwaux Every 6 hours Accu-Chek, sliding scale insulin DVT PPX: SCD Code status:full Discharge Plan: Home Plan to discharge in: Greater than 2 days - Advance Directives Does patient have a Living Will: No Does patient have a Durable POA for Healthcare: No - Code Status/Comfort Care Code Status Assessed: Yes (Full code) Critical Care: No Time Spent Managing Pts Care (In Minutes): 68
[2024-06-14] MEDS: INSULIN REGULAR (HUMAN) 100 UNIT/ML SQ SCH (16:22)
[2024-06-14] MEDS: NA CHLORIDE 0.9% 1,000 ML IV SCH (21:00)
[2024-06-15 00:06] LABS: Hematocrit 20.4 % (36.0-45.0); Hemoglobin 6.9 g/dL (12.0-15.0)
[2024-06-15 05:46] LABS: Absolute Basophils 0.1 K/uL (0-0.5); Absolute Eosinophils 0.1 K/uL (0-0.5); Absolute Lymphocytes (CBC) 1.3 K/uL (0.7-4.9); Absolute Monocytes 0.4 K/uL (0.1-1.3); Absolute Neutrophil 3.7 K/uL (1.8-8.0); Basophils % 0.9 % (0-1.3); Hematocrit 20.8 % (36.0-45.0); Hemoglobin 7.2 g/dL (12.0-15.0); Lymphocytes % 23.6 % (15.3-44.8); MCH 29.6 pg (27.0-35.0); MCHC 34.4 g/dL (32.0-36.0); MPV 7.1 fL (7.6-11.3); Monocytes % 7.1 % (3.3-12.3); Neutrophils % 67.4 % (41.7-73.7); Nucleated Red Blood Cells % 0.2 % (0-0); Platelets 285 thou/uL (152-406); RBC Red Blood Cell Count 2.42 M/uL (3.86-4.86); Red Cell Distribution Width 19.4 % (12.1-15.2)
[2024-06-15 06:10] LABS: Albumin/Globulin Ratio 1.4 (1.1-1.8); Anion Gap 10.7 mEq/L (5.0-15.0); Bilirubin Total 0.8 mg/dL (0.2-1.0); Globulin 2.2 g/dL (2.3-3.5); Potassium 3.7 mEq/L (3.5-5.1); Protein, Total 5.2 g/dL (6.4-8.2)
[2024-06-15] MEDS: PANTOPRAZOLE INJ 80 MG in NA CHLORIDE 0.9% 250 ML IV SCH (08:25)
[2024-06-15] MEDS: PNEUMOCOCCAL VACCINE 0.5 ML IMVAC ONE (09:00)
--- NOTE | 2024-06-15 09:05 | P.PN ---
Date of Service: 06/15/24 Subjective: No acute events overnight Has not had bowel movement since admission Had third unit PRBC overnight Denies abdominal pain ROS: 10 point ROS as noted above, otherwise negative Physical exam GEN: Alert, oriented, NAD HEENT: Normal conjunctiva, sclera anicteric CV: Regular rate and rhythm, no edema Pulm: Nonlabored respirations on room air ABD: Soft, nontender, nondistended MSK: No joint tenderness Integumentary: No rashes, skin color improved Neuro: Normal speech, normal affect Vitals reviewed Assessment: Severe acute blood loss anemia Suspected upper GI bleed History of DVT on Xarelto Diabetes type 0ggk-hzopisi-eftxwwxri Plan: Severe acute blood loss anemia Suspected upper GI bleed History of DVT on Xarelto Hold Xarelto, last dose 06/13 around 2 PM N.p.o. for EGD today Has had total of 3 units of PRBC at this time, repeat hemoglobin this morning 7.1 Depending on findings we will need to discuss anticoagulation with GI, patient Diabetes type 4kkv-pbnfipv-vmrnuivif Every 6 hours Accu-Chek, sliding scale insulin DVT PPX: SCD Code status:full Discharge Plan: Home Plan to discharge in: Greater than 2 days Time Spent Managing Pts Care (In Minutes): 35
[2024-06-15] MEDS ORDERED: LIDOCAINE 1% MPF 5 ML VIAL ONE (10:24)
[2024-06-15] MEDS ORDERED: propofoL 200 MG/20 ML VIAL IV ONE (10:24)
[2024-06-15] MEDS: NA CHLORIDE 0.9% 1,000 ML ONE (10:27)
[2024-06-15] MEDS ORDERED: GOLYTELY 4000 ML PO ONE (12:00)
--- NOTE | 2024-06-15 12:38 | EKG ---
Test Date: 2024-06-14 Test Time: 09:33:46 Learning Designer: IVANIA MEASUREMENT RESULTS: Intervals: Rate: 81 VT: 136 QRSD: 94 QT: 384 QTc: 446 [place]: P: 61 VT: 136 QRS: -1 T: 85 INTERPRETIVE STATEMENTS: Normal sinus rhythm Septal infarct, age undetermined Lateral infarct, age undetermined Abnormal ECG Compared to ECG 03/14/2011 01:15:31 Left-axis deviation no longer present Myocardial infarct finding still present Electronically Signed On 06-15-24 12:36:35 CDT by Saúl Landin
[2024-06-15 13:20] LABS: Hemoglobin 7.5 g/dL (12.0-15.0)
[2024-06-15] MEDS: GOLYTELY 4000 ML PO ONE (15:35)
[2024-06-15] MEDS: PANTOPRAZOLE 40MG TABLET PO SCH (15:35)
[2024-06-16 04:50] LABS: Absolute Lymphocytes (CBC) 0.9 K/uL (0.7-4.9); Absolute Monocytes 0.3 K/uL (0.1-1.3); Absolute Neutrophil 3.8 K/uL (1.8-8.0); Basophils % 0.6 % (0-1.3); Eosinophils % 0.8 % (0-4.4); Lymphocytes % 17.3 % (15.3-44.8); MCH 29.9 pg (27.0-35.0); MCHC 34.9 g/dL (32.0-36.0); MCV 85.5 fL (80-100); MPV 7.1 fL (7.6-11.3); Monocytes % 6.6 % (3.3-12.3); Neutrophils % 74.7 % (41.7-73.7); Nucleated Red Blood Cells % 0.1 % (0-0); Platelets 268 thou/uL (152-406); RBC Red Blood Cell Count 1.99 M/uL (3.86-4.86); Red Cell Distribution Width 19.1 % (12.1-15.2)
[2024-06-16 04:54] LABS: Hemoglobin 5.9 g/dL (12.0-15.0)
[2024-06-16 05:03] LABS: Albumin 2.7 g/dL (3.4-5.0); Albumin/Globulin Ratio 1.4 (1.1-1.8); Anion Gap 9.7 mEq/L (5.0-15.0); Bilirubin Total 0.5 mg/dL (0.2-1.0); Potassium 3.7 mEq/L (3.5-5.1); Protein, Total 4.7 g/dL (6.4-8.2)
[2024-06-16] MEDS ORDERED: NA CHLORIDE 0.9% 500 ML ONE (08:18)
[2024-06-16] MEDS: NA CHLORIDE 0.9% 500 ML ONE (08:21)
[2024-06-16] MEDS ORDERED: EPINEPHRINE 1 MG/ML VIAL ONE (08:30)
[2024-06-16] MEDS ORDERED: propofoL 200 MG/20 ML VIAL IV ONE ×3 (08:35→09:57)
[2024-06-16] MEDS ORDERED: LIDOCAINE 1% MPF 5 ML VIAL ONE (08:35)
[2024-06-16] MEDS ORDERED: EPHEDRINE SULF 50 MG/ML VIAL ONE (09:18)
[2024-06-16] MEDS ORDERED: SIMETHICONE 40 MG/ 0.6 ML ONE (09:57)
[2024-06-16] MEDS: NA CHLORIDE 0.9% 1,000 ML ONE (09:58)
[2024-06-16] MEDS: ACETAMINOPHEN 325 MG TABLET PO PRN (11:40)
--- NOTE | 2024-06-16 16:18 | RAD REPORT ---
EXAMINATION: US LOWER EXTREMITY VENOUS DOPPLER BILATERAL CLINICAL INDICATION: Female, 74 years old.r/o DVT TECHNIQUE: Complete bilateral duplex sonography of the lower extremity veins was performed. The exami nation included compression for vein patency, color Doppler imaging and flow augmentation in response to distal compression of the distal external iliac, common femoral, femoral, popliteal, altagracia viet, tibial and great saphenous veins. [id number]. COMPARISON: 04/08/2024 FINDINGS: Incompletely compressible right femoral vein consistent with nonocclusive thrombus is also present on the ultrasound from 04/08/2024. The remaining veins within the right and left lower extremity were compressible and demonstrated flow with color Doppler. 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 The volume of thrombus has diminished. Negative for DVT in the left lower extremity.
--- NOTE | 2024-06-16 18:03 | P.PN ---
Date of Service: 06/16/24 Subjective: Colonoscopy today Hemoglobin 5.9, requiring 2 units packed red blood cells Will continue to hold Eliquis, DVT reevaluated with bilateral ultrasound showing slight improvement to right DVT and left lower extremities clear. ROS: 10 point ROS as noted above, otherwise negative Physical exam GEN: Alert and oriented x3, NAD, afebrile HEENT: Normal conjunctiva, sclera anicteric CV: NSR, no edema Pulm: Clear BBS on room air ABD: Soft and nontender on palpation, nondistended MSK: No joint tenderness Integumentary: No rashes, skin color improved Neuro: Normal speech, normal affect Vitals reviewed Assessment: Severe acute blood loss anemia Suspected upper GI bleed History of DVT on Xarelto Diabetes type 3gbz-sbcbzyq-woottpepd Plan: Severe acute blood loss anemia Suspected upper GI bleed History of DVT on Xarelto Hold Xarelto, last dose 06/13 around 2 PM Colonoscopy today Clear liquid diet, advancing diet very slowly Has had total of 4 units of PRBC at this time, repeat hemoglobin 9.4 Depending on findings we will need to discuss anticoagulation with GI, patient Bilateral venous ultrasound reports "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 The volume of thrombus has diminished. Negative for DVT in the left lower extremity" Diabetes type 9wac-ojietuo-snezarpss Every 6 hours Accu-Chek, sliding scale insulin DVT PPX: SCD Code status:full Discharge Plan: Home Plan to discharge in: Greater than 2 days
[2024-06-17 06:07] LABS: Absolute Eosinophils 0.1 K/uL (0-0.5); Absolute Monocytes 0.4 K/uL (0.1-1.3); Absolute Neutrophil 4.6 K/uL (1.8-8.0); Basophils % 0.6 % (0-1.3); Hematocrit 25.1 % (36.0-45.0); Hemoglobin 8.8 g/dL (12.0-15.0); Lymphocytes % 15.7 % (15.3-44.8); MCH 30.4 pg (27.0-35.0); MCHC 34.9 g/dL (32.0-36.0); MPV 7.3 fL (7.6-11.3); Neutrophils % 76.7 % (41.7-73.7); Platelets 208 thou/uL (152-406); RBC Red Blood Cell Count 2.89 M/uL (3.86-4.86); Red Cell Distribution Width 18.1 % (12.1-15.2)
[2024-06-17 06:24] LABS: Albumin 2.6 g/dL (3.4-5.0); Albumin/Globulin Ratio 1.2 (1.1-1.8); Bilirubin Total 0.9 mg/dL (0.2-1.0); Globulin 2.1 g/dL (2.3-3.5); Protein, Total 4.7 g/dL (6.4-8.2)
[2024-06-17] MEDS: POTASSIUM CL SA 10 MEQ TAB PO ONE (07:47)
--- NOTE | 2024-06-17 18:14 | P.PN ---
Date of Service: 06/17/24 Subjective: Feeling well, eating breakfast, tolerating CLD, and ambulating independently H/H stable, will continue to monitor Likely discharge on Thursday, based on diet toleration ROS: 10 point ROS as noted above, otherwise negative Physical exam GEN: AAO x3, NAD, afebrile HEENT: Normal conjunctiva, sclera anicteric CV: NSR, no murmur noted Pulm: Clear BBS, nonlabored breathing, on room air ABD: Soft and nontender on palpation, nondistended MSK: No joint tenderness Integumentary: No rashes, skin color improved Neuro: Normal speech, normal affect Vitals reviewed Assessment: Severe acute blood loss anemia Suspected upper GI bleed History of DVT on Xarelto Diabetes type 5prn-uluhdbs-xyuhuaial Plan: Severe acute blood loss anemia Suspected upper GI bleed History of DVT on Xarelto Hold Xarelto, last dose 06/13 around 2 PM Colonoscopy 06/16 Full liquid diet in the AM Has had total of 4 units of PRBC at this time, H/H 8.10/17.1 this morning, recheck this afternoon Depending on findings we will need to discuss anticoagulation with GI, patient Bilateral venous ultrasound reports "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 The volume of thrombus has diminished. Negative for DVT in the left lower extremity" Diabetes type 4vwq-bbajyjz-djpzljdjx Every 6 hours Accu-Chek, sliding scale insulin DVT PPX: SCD Code status:full Discharge Plan: Home Plan to discharge in: Greater than 2 days
[2024-06-17 18:25] LABS: Hematocrit 25.6 % (36.0-45.0); Hemoglobin 8.8 g/dL (12.0-15.0)
[2024-06-17] MEDS ORDERED: D10W 125 ML IV PRN (18:48)
[2024-06-17] MEDS ORDERED: GLUCAGON 1 MG/VIAL IM PRN (18:48)
[2024-06-18 06:14] LABS: Absolute Eosinophils 0.1 K/uL (0-0.5); Absolute Lymphocytes (CBC) 1.3 K/uL (0.7-4.9); Absolute Monocytes 0.4 K/uL (0.1-1.3); Absolute Neutrophil 3.1 K/uL (1.8-8.0); Basophils % 0.9 % (0-1.3); Eosinophils % 2.5 % (0-4.4); Hematocrit 25.8 % (36.0-45.0); Lymphocytes % 26.2 % (15.3-44.8); MCH 30.9 pg (27.0-35.0); MCHC 34.9 g/dL (32.0-36.0); MCV 88.7 fL (80-100); MPV 7.6 fL (7.6-11.3); Monocytes % 7.9 % (3.3-12.3); Neutrophils % 62.5 % (41.7-73.7); Nucleated Red Blood Cells % 0.1 % (0-0); Platelets 220 thou/uL (152-406); RBC Red Blood Cell Count 2.91 M/uL (3.86-4.86); Red Cell Distribution Width 17.9 % (12.1-15.2)
[2024-06-18 06:41] LABS: ALT/SGPT 17 U/L (13-56); AST/SGOT 15 U/L (15-37); Albumin 2.7 g/dL (3.4-5.0); Albumin/Globulin Ratio 1.2 (1.1-1.8); Alkaline Phosphatase 36 U/L (45-117); Anion Gap 7.4 mEq/L (5.0-15.0); Bicarbonate 23 mEq/L (21-32); Bilirubin Total 0.6 mg/dL (0.2-1.0); Globulin 2.3 g/dL (2.3-3.5); Glomerular Filtration Rate 96 ml/min (=/>90); Glucose Level 116 mg/dL (74-106); Potassium 3.4 mEq/L (3.5-5.1); Sodium Level 144 mEq/L (136-145)
[2024-06-18 06:46] LABS: BUN Blood Urea Nitrogen < 3 mg/dL (7-18)
[2024-06-18] MEDS: POTASSIUM 25 MEQ EFFERV TAB PO ONE (07:58)
--- NOTE | 2024-06-18 09:16 | P.PN ---
Date of Service: 06/18/24 Subjective: Feeling well, reports maybe feeling some burning with FLD, will trial again at noon and re-evaluate Dr. Arevalo agrees with holding eliquis for now, Dr. Garcia recommends holding eliquis for 2 weeks H/H stable ROS: 10 point ROS as noted above, otherwise negative Physical exam GEN: Oriented x3, NAD, conversing well HEENT: Normal conjunctiva, sclera anicteric CV: NSR, no murmur noted Pulm: symmetrical chest wall movement, on room air ABD: Nontender on palpation MSK: No joint tenderness Integumentary: No rashes, skin color improved Neuro: Normal speech, normal affect Vitals reviewed Assessment: Severe acute blood loss anemia Suspected upper GI bleed History of DVT on Xarelto Diabetes type 2scu-wzsgnmr-ywuontxow Plan: Severe acute blood loss anemia Suspected upper GI bleed History of DVT on Xarelto Hold Xarelto, last dose 06/13 around 2 PM H/H 9.0/25.8 Colonoscopy 06/16 Full liquid diet today Has had total of 4 units of PRBC at this time, H/H 8.8/25.1 this morning, recheck this afternoon Bilateral venous ultrasound reports "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 The volume of thrombus has diminished. Negative for DVT in the left lower extremity" Dr. Arevalo agrees with holding Eliquis for now, Dr. Garcia recommends holding eliquis for 2 weeks Diabetes type 7mso-tpceepx-tuymfrgjo Every 6 hours Accu-Chek, sliding scale insulin DVT PPX: SCD Code status:full Discharge Plan: Home Plan to discharge in: Greater than 2 days
[2024-06-18 09:21] VITALS: O2SAT 98
[2024-06-19] MEDS: ATORVASTATIN 20 MG TAB PO SCH (08:09)
--- NOTE | 2024-06-19 08:33 | P.DS ---
Admission Date: 06/14/24 Discharge Date: 06/19/24 Disposition: ROUTINE DISCHARGE Discharge Condition: GOOD Reason for Admission: Upper GI bleed Brief History of Present Illness: Diagnosis Severe acute blood loss anemia Suspected upper GI bleed History of DVT on Xarelto Diabetes type 7iyq-hpcetat-bzcumopyk HPI 06/14/2024 74-year-old female with history of dnv-uoeiehi-xexowrtyp diabetes, DVT on Xarelto presents to the emergency department with chief complaint of fall. She was evaluated in the emergency department her CT head/C-spine showed no acute findings, CT of the chest abdomen pelvis subsequently was performed which showed superior endplate compression deformity at L1 of indeterminate age, healing bilateral rib fractures as above with no other acute findings. Facial bones CT was also performed which showed possible subacute or chronic left nasal bone fracture. Patient labs demonstrated severe anemia with a hemoglobin of 4.1 bicarb of 17 BUN of 40 with a creatinine of 1.13. Patient does report that she is been having round black stools for around a month or more now. She was started on Xarelto around 2 months ago for DVT. Patient was discussed with GI who will be seeing patient during hospitalization for EGD, blood transfusion of 2 unit PRBC ordered in ED, patient to be admitted to ICU for further management. Hospital Course: Zee was admitted after a fall with CT showing superior endplate compression deformity at L1 of indeterminate age, healing bilateral rib fractures. Facial bone CT showing possible subacute or chronic left nasal bone fracture. Laboratory evaluation showing hemoglobin 4.1, she was started on Xarelto for a DVT found 2 months ago. Her severe anemia was treated with a total of 4 units packed red blood cells this admission with H&H stabilizing now at 9.3/27 today (06/19/2024). Dr. Garcia recommends holding Xarelto for 2 weeks, Dr. Arevalo agrees. Zee will need to follow-up with Dr. Lopez and Dr. Jose Weiss for close monitoring of DVT and GI bleed. She is tolerating full liquid diet and transition to soft GI diet. Plan to discharge with Protonix twice daily and remain on soft GI diet until further noted by GI. Physical exam GEN: alert Oriented x3, NAD, conversing well CV: NSR, no murmur noted Pulm: Nonlabored breathing, on room air ABD: Nontender on palpation MSK: No joint tenderness Neuro: Normal speech, normal affect Vital Signs/Physical Exam: Temp Pulse Resp BP Pulse Ox 97.7 F 80 15 138/70 99 06/19/24 04:00 06/19/24 04:00 06/19/24 04:00 06/19/24 04:00 06/19/24 04:00 Laboratory Data at Discharge: WBC 5.00 thou/uL (4.3-10.9) 06/18/24 05:48 Hgb 9.0 g/dL (12.0-15.0) L 06/18/24 05:48 Hct 25.8 % (36.0-45.0) L 06/18/24 05:48 Plt Count 220 thou/uL (152-406) 06/18/24 05:48 PT 19.4 SECONDS (10-13.0) H 06/14/24 08:04 INR 1.75 06/14/24 08:04 Sodium 144 mEq/L (136-145) 06/18/24 05:48 Potassium 3.4 mEq/L (3.5-5.1) L D 06/18/24 05:48 BUN < 3 mg/dL (7-18) L 06/18/24 05:48 Creatinine 0.56 mg/dL (0.55-1.02) 06/18/24 05:48 Glucose 116 mg/dL (74-106) H 06/18/24 05:48 Magnesium 2.0 mg/dL (1.6-2.4) 06/14/24 08:04 Total Bilirubin 0.6 mg/dL (0.2-1.0) 06/18/24 05:48 AST 15 U/L (15-37) 06/18/24 05:48 ALT 17 U/L (13-56) 06/18/24 05:48 Alkaline Phosphatase 36 U/L (45-117) L 06/18/24 05:48 Lipase 26 U/L (13-75) 06/14/24 08:04 Home Medications: Alendronate Sodium 70 mg PO DAILY 06/14/24 Atorvastatin Calcium 20 mg PO DAILY 06/14/24 Metformin ER [Glucophage ER*] 500 mg PO DAILY 06/14/24 Pantoprazole [Protonix Tab*] 40 mg PO BIDAC 30 Days #60 tab 06/19/24 New Medications: Pantoprazole [Protonix Tab*] 40 mg PO BIDAC 30 Days #60 tab Physician Discharge Instructions: Zee was admitted after a fall with CT showing superior endplate compression deformity at L1 of indeterminate age, healing bilateral rib fractures. Facial bone CT showing possible subacute or chronic left nasal bone fracture. Laboratory evaluation showing hemoglobin 4.1, she was started on Xarelto for a DVT found 2 months ago. She has had a total of 4 units packed red blood cells this admission with H&H stabilizing now at 9.05/19.Dr. Garcia performed an EGD finding many bleeding areas which will require follow up at his clinic. Dr. Garcia recommends holding Xarelto for 2 weeks, Dr. Arevalo agrees. Zee will need to follow-up with Dr. Lopez and Dr. Jose Weiss for close monitoring of DVT and GI bleed. She is tolerating full liquid diet and transition to soft GI diet. Plan to discharge with Protonix twice daily and remain on soft GI diet until further noted by GI. 1. Please call and schedule a follow-up appointment with your PCP in 3-5 days - Please follow-up with your PCP for medication refills/adjustments 2. Please call and schedule a follow-up appointment with Dr. Garcia in 1 week 3. Please call and schedule a follow-up appointment with Dr. Arevalo at your next scheduled appointment 3. Continue GI soft diet diet 4. No activity restrictions 5. Return to the ED if symptoms worsen New medications Protonix 40 mg twice daily x 30 days Stop taking Xarelto until further discussed with Dr. Arevalo and Dr. Garcia Diet: Soft GI Followup: Jenn Arevalo MD [ACTIVE - CAN ADMIT] - Wicho Garcia MD [ACTIVE - CAN ADMIT] -
[2024-06-19 10:49] LABS: Absolute Eosinophils 0.1 K/uL (0-0.5); Absolute Monocytes 0.3 K/uL (0.1-1.3); Absolute Neutrophil 3.1 K/uL (1.8-8.0); Basophils % 0.9 % (0-1.3); Eosinophils % 1.8 % (0-4.4); Hemoglobin 9.3 g/dL (12.0-15.0); Lymphocytes % 21.7 % (15.3-44.8); MCH 30.7 pg (27.0-35.0); MCHC 34.3 g/dL (32.0-36.0); MCV 89.6 fL (80-100); MPV 7.7 fL (7.6-11.3); Monocytes % 7.1 % (3.3-12.3); Neutrophils % 68.5 % (41.7-73.7); Platelets 227 thou/uL (152-406); RBC Red Blood Cell Count 3.02 M/uL (3.86-4.86); Red Cell Distribution Width 18.2 % (12.1-15.2)
[2024-06-19 11:11] LABS: Anion Gap 9.9 mEq/L (5.0-15.0); Magnesium 1.9 mg/dL (1.6-2.4); Phosphorus 3.4 mg/dL (2.5-4.9); Potassium 3.9 mEq/L (3.5-5.1)
[2024-06-19 12:49] VITALS: BP 150/76; TEMP 97.7
== END 2024-06-19 13:49 | disposition home or self-care (01) | DRG 378 ==
LOC: ER 05:47 → ERHOLD 10:02 → 3RD-ICU 12:48 → 4TH 06-15 18:17 → UNDODISIN 06-19 11:25
PROVIDERS: ADMIT Hospitalist; ATTEND Hospitalist
PROC: 0DB68ZX Excision of Stomach, Via Natural or Artificial Opening Endoscopic, Diagnostic (ICD-10-PCS; 2024-06-15)
PROC: 30233N1 Transfusion of Nonautologous Red Blood Cells into Peripheral Vein, Percutaneous Approach (ICD-10-PCS; 2024-06-15)
PROC: 0W3P8ZZ Control Bleeding in Gastrointestinal Tract, Via Natural or Artificial Opening Endoscopic (ICD-10-PCS; principal; 2024-06-16 08:30)
DX: K55.21 Angiodysplasia of colon with hemorrhage (principal); D62 Acute posthemorrhagic anemia; E11.9 Type 2 diabetes mellitus without complications; I10 Essential (primary) hypertension; K29.71 Gastritis, unspecified, with bleeding; K44.9 Diaphragmatic hernia without obstruction or gangrene; S22.32XD Fracture of one rib, left side, subsequent encounter for fracture with routine healing; S22.31XD Fracture of one rib, right side, subsequent encounter for fracture with routine healing; S32.019D Unspecified fracture of first lumbar vertebra, subsequent encounter for fracture with routine healing; Z79.4 Long term (current) use of insulin; Z79.01 Long term (current) use of anticoagulants; Z79.84 Long term (current) use of oral hypoglycemic drugs; Z79.899 Other long term (current) drug therapy; Z86.718 Personal history of other venous thrombosis and embolism
CPT/HCPCS: 36415; 36430; 70450; 70486; 71250; 72125; 74176; 76377; 80048; 80053; 80076; 81001; 82947; 83690; 83735; 83880; 84100; 84443; 84484; 85014; 85018; 85025; 85610; 86850; 86900; 86901; 86920; 88305; 88312; 93005; 93970; 96365; 96366; 96375; 99285; J0171; J1815; J2003; J2470; J2704; J7030; J7040; J7050; P9016; P9047